=== PATIENT | male | born 1950 | race Caucasian/White ===

== ENCOUNTER 2023-11-11 06:57 | Observation (INO) | payer MEDICARE ==
[~2023-11-11] VITALS: Ht 190.5 cm; Wt 122.9 kg
[2023-11-11] VITALS (7 sets, daily range): BP systolic 135–140; BP diastolic 76–83; PULSE 88–105; RESP 16–20; TEMP 97.5–97.6; O2SAT 91–100
[~2023-11-11 06:57] MED LIST: BYSTOLIC10 MG PO; CENTRUM MEN'S1 EACH PO; CIALIS5 MG PO; CLARITIN10 MG PO; FARXIGA10 MG PO; FINASTERIDE5 MG PO; LIDOCAINE1 EACH TOP; LOSARTAN-HCTZ1 EAC2 PO; MONTELUKAST SOD10 MG PO; PANTOPRAZOLE SO40 MG PO; VITAMIN D3125 MCG PO
[2023-11-11] MEDS: LACTATED RINGER'S 1,000 ML ONE (07:36)
[2023-11-11] MEDS ORDERED: DEXAMETHASONE SOD PHOS 10 MG/1 ML VIAL ONE ×2 (10:09→10:36)
[2023-11-11] MEDS ORDERED: COCAINE HCL 4% 4 ML BTL EXT ONE (10:09)
[2023-11-11] MEDS ORDERED: SUGAMMADEX SODIUM 200 MG/2 ML VIAL IV ONE ×2 (10:15→12:08)
[2023-11-11] MEDS ORDERED: ACETAMINOPHEN 1000 MG/100 ML 100 ML IV ONE (10:15)
[2023-11-11] MEDS ORDERED: LIDOCAINE JELLY 2% 10ML URO-JET ONE (10:16)
[2023-11-11] MEDS ORDERED: LIDOCAINE 1% W/EPINEPHRINE 20 ML VIAL ONE (10:36)
[2023-11-11] MEDS ORDERED: EPINEPHRINE HCL 1:1000 1ML 1 MG/ML AMP ONE ×2 (11:25→11:47)
[2023-11-11] MEDS ORDERED: PROPOFOL IV EMULSION 10 MG/ML 20 ML VIAL ONE (12:05)
[2023-11-11] MEDS ORDERED: ONDANSETRON HCL INJ 2MG/ML 2ML 2 MG/ML VIAL ONE (12:05)
[2023-11-11] MEDS ORDERED: ROCURONIUM BROMIDE 10 MG/ML 5ML VIAL IV ONE (12:05)
[2023-11-11] MEDS ORDERED: DEXAMETHASONE SOD PHOS INJ 4 MG/ML SDV ONE (12:05)
[2023-11-11] MEDS ORDERED: LIDOCAINE HCL 2% LOCAL INJ 5 ML SDV VIAL INJ ONE (12:05)
[2023-11-11] MEDS ORDERED: SEVOFLURANE INHAL SOLN 250 ML PEN BTL ONE (12:05)
[2023-11-11] MEDS ORDERED: MIDAZOLAM HCL 2 MG/2 ML VIAL ONE (13:39)
[2023-11-11] MEDS ORDERED: FENTANYL CITRATE/PF 100MCG/2 ML INJ ONE (13:39)
[2023-11-11] MEDS: ALBUTEROL/IPRATROPIUM 3 ML NEB INH ONE (13:45)
[2023-11-11] MEDS ORDERED: FLUMAZENIL 0.5MG/ 5ML VIAL ONE (14:01)
[2023-11-11] MEDS ORDERED: MEPERIDINE HCL INJ 25 MG/ML VIAL IV PRN (14:45)
[2023-11-11] MEDS ORDERED: ALBUTEROL/IPRATROPIUM 3 ML NEB NEB PRN (15:45)
[2023-11-11] MEDS ORDERED: DOCUSATE SODIUM 100 MG CAP PO PRN (15:45)
[2023-11-11] MEDS ORDERED: SIMETHICONE 80 MG CHEW PO PRN (15:45)
[2023-11-11] MEDS ORDERED: LIDOCAINE 4% PATCH TP PRN (15:45)
[2023-11-11] MEDS ORDERED: DEXTROSE 50% SYRINGE 50 ML IV PRN ×2 (15:45→16:00)
[2023-11-11] MEDS ORDERED: HYDRALAZINE HCL 20 MG/ML VIAL IV PRN (15:45)
[2023-11-11] MEDS ORDERED: MELATONIN 5 MG TABLET PO PRN (15:45)
[2023-11-11] MEDS ORDERED: DIPHENHYDRAMINE HCL 25 MG CAP PO PRN (15:45)
[2023-11-11] MEDS ORDERED: POTASSIUM CHLORIDE 20 MEQ TAB CR PO PRN (15:45)
[2023-11-11] MEDS ORDERED: BENZONATATE 100 MG CAP PO PRN (15:45)
[2023-11-11] MEDS: FUROSEMIDE INJ 10 MG/ML 4 ML VIAL ONE (15:56)
[2023-11-11] MEDS: ALBUTEROL/IPRATROPIUM 3 ML NEB ONE (15:57)
[2023-11-11] MEDS: NALOXONE HCL INJ 0.4 MG/ML AMP ONE (15:57)
[2023-11-11 16:15] LABS: BASOPHILS % 0.1 % (0.0-1.0); HEMATOCRIT 57.4 % (38.2-49.6); HEMOGLOBIN 16.7 g/dL (14.0-18.0); LYMPHOCYTES # (AUTO) 0.7 (1.0-3.2); LYMPHOCYTES % 8.8 % (18.0-39.1); MEAN CORPUSCULAR HEMOGLOBIN 26.9 pg (28-32); MEAN CORPUSCULAR HGB CONC 29.1 g/dL (31-35); MEAN CORPUSCULAR VOLUME 92.6 fL (81-99); MONOCYTES # (AUTO) 0.2 (0.2-0.8); NEUTROPHILS # (AUTO) 6.8 (2.1-6.9); NEUTROPHILS % 88.8 % (38.7-80.0); PLATELET COUNT 172 x10e3/uL (140-360); RED CELL DISTRIBUTION WIDTH 18.4 % (11.7-14.4); WHITE BLOOD COUNT 7.65 x10e3/uL (4.8-10.8)
[2023-11-11] MEDS: INSULIN LISPRO 100 UNIT/1 ML 3ML VIAL SQ SCH (16:30)
[2023-11-11 16:34] LABS: ANION GAP 14.1 mmol/L (8-16); CREATININE, SERUM 1.24 mg/dL (0.72-1.25); POTASSIUM 4.1 mmol/L (3.5-5.1)
[2023-11-11] MEDS: ACETAMINOPHEN 325 MG TAB PO PRN (17:37)
[2023-11-11] MEDS: TRAMADOL HCL 50 MG TAB PO PRN (20:48)
[2023-11-11] MEDS ORDERED: IOPAMIDOL 370 MG/ML 100 ML INFUS..BTL INJ ONE ×2 (21:04→21:58)
[2023-11-11 22:18] LABS: ABG PH 7.31 (7.35-7.45)
[2023-11-11 22:19] LABS: ABG HCO3 34 mmol/L (22-26); ABG PCO2 67 mmHg (35-45); ABG PO2 68 mmHg (80-105); ABG TCO2 36
[2023-11-12] VITALS (10 sets, daily range): BP systolic 104–162; BP diastolic 55–84; PULSE 86–106; RESP 17–20; TEMP 97.3–98.6; O2SAT 84–100
[2023-11-12] MEDS: IPRATROPIUM BROMIDE 0.02% 2.5 ML NEB NEB SCH (01:00)
[2023-11-12] MEDS: ONDANSETRON HCL INJ 2MG/ML 2ML 2 MG/ML VIAL IV PRN (04:18)
[2023-11-12] MEDS: PROMETHAZINE 25MG/ NS 50ML (IV) IV PRN (05:21)
[2023-11-12 06:14] LABS: BASOPHILS % 0.1 % (0.0-1.0); HEMATOCRIT 55.2 % (38.2-49.6); LYMPHOCYTES # (AUTO) 0.8 (1.0-3.2); LYMPHOCYTES % 7.6 % (18.0-39.1); MEAN CORPUSCULAR VOLUME 93.2 fL (81-99); MONOCYTES # (AUTO) 0.7 (0.2-0.8); MONOCYTES % 6.9 % (4.4-11.3); NEUTROPHILS # (AUTO) 9.1 (2.1-6.9); NEUTROPHILS % 85.1 % (38.7-80.0); PLATELET COUNT 228 x10e3/uL (140-360); RED BLOOD COUNT 5.92 x10e6/uL (4.3-5.7); RED CELL DISTRIBUTION WIDTH 17.9 % (11.7-14.4); WHITE BLOOD COUNT 10.72 x10e3/uL (4.8-10.8)
[2023-11-12 06:39] LABS: ANION GAP 14.3 mmol/L (8-16); CALCIUM 9.5 mg/dL (8.4-10.2); CREATININE, SERUM 1.02 mg/dL (0.72-1.25); POTASSIUM 4.3 mmol/L (3.5-5.1)
[2023-11-12] MEDS: BUDESONIDE 0.25 MG/2 ML NEB NEB SCH (07:00)
[2023-11-12] MEDS: PANTOPRAZOLE SOD 40 MG TABEC PO SCH (08:37)
[2023-11-12] MEDS: HYDROCHLOROTHIAZIDE 25 MG TAB PO SCH (08:38)
[2023-11-12] MEDS: LOSARTAN POTASSIUM 100 MG TAB PO SCH (08:38)
[2023-11-12] MEDS: MONTELUKAST SODIUM 10 MG TAB PO SCH (08:39)
[2023-11-12] MEDS: FINASTERIDE 5 MG TAB PO SCH (08:39)
[2023-11-12] MEDS ORDERED: NON-FORMULARY MEDICATION (Losartan/Hydrochlorothiazide (Losartan-Hctz 100-12.5 Mg Tab) 1 T PO SCH (09:00)
== END 2023-11-12 17:50 | disposition home or self-care (01) ==
LOC: OR 06:57 → PACU V 14:43 → MED/SURG3 15:20
PROVIDERS: ADMIT Internal Medicine; ATTEND Internal Medicine
DX: J96.21 Acute and chronic respiratory failure with hypoxia (principal); J96.22 Acute and chronic respiratory failure with hypercapnia; C82.91 Follicular lymphoma, unspecified, lymph nodes of head, face, and neck; J38.7 Other diseases of larynx; J98.6 Disorders of diaphragm; E66.2 Morbid (severe) obesity with alveolar hypoventilation; Z68.33 Body mass index [BMI] 33.0-33.9, adult; Z91.198 Patient's noncompliance with other medical treatment and regimen for other reason; Z87.891 Personal history of nicotine dependence; D75.1 Secondary polycythemia; K21.9 Gastro-esophageal reflux disease without esophagitis; R05.3 Chronic cough; I10 Essential (primary) hypertension; E11.9 Type 2 diabetes mellitus without complications; Z79.84 Long term (current) use of oral hypoglycemic drugs; E07.9 Disorder of thyroid, unspecified; Z79.899 Other long term (current) drug therapy
CPT/HCPCS: 21556; 31541; 31622; 36415 ×2; 36600; 43191; 71045; 71260; 80048 ×2; 82805; 82948 ×2; 85025 ×2; 88305; 88342; 93005; 94799 ×2; 97161; G0378 ×2; J0131; J0171; J1940; J2250; J2310; J2405; J2550; J3010; J7121; Q9967; S0164; 88304; J1100; J2001